=== PATIENT | male | born 1990 | race Hispanic/Latino ===

== ENCOUNTER 2019-11-05 09:17 | Emergency (ER) | payer SELFPAY ==
[2019-11-05 09:32] LABS: Absolute Lymphocytes (CBC) 1.9 K/uL (0.7-4.9); Basophils % 0.5 % (0-1.3); Lymphocytes % 24.5 % (15.3-44.8); MPV 7.4 fL (7.6-11.3); RBC Red Blood Cell Count 4.56 M/uL (4.33-5.43)
[2019-11-05] MEDS ORDERED: NA CHLORIDE 0.9% 1,000 ML ONE (09:36)
[2019-11-05 09:39] LABS: Protime INR 1.09
--- NOTE | 2019-11-05 09:50 | RAD REPORT ---
EXAM DESCRIPTION: CT - Head C Spine Mpr Wo Con - 11/05/2019 9:36 am CLINICAL HISTORY: Syncope. Head and neck injury status post fall. Head and neck pain COMPARISON: None. TECHNIQUE: Computed axial tomography of the head and cervical spine was obtained. Sagittal and coronal reconstruction was performed. All CT scans are performed using dose optimization technique as appropriate and may include automated exposure control or mA/KV adjustment according to patient size. FINDINGS: An intracranial bleed is not seen. The ventricles are normal in caliber. An extra-axial fl uid collection is not noted.Fluid within the visualized sinuses and mastoids is not seen A cervical fracture is not visualized. No dislocation is noted. IMPRESSION: No acute intracranial abnormality is seen. A cervical fracture is not visualized. If the patient continues to have symptoms to suggest intracra nial /spinal cord pathology then MRI would be recommended
[2019-11-05 09:56] LABS: ALT/SGPT 77 U/L (12-78); AST/SGOT 51 U/L (15-37); Alkaline Phosphatase 126 U/L (45-117); BUN Blood Urea Nitrogen 15 mg/dL (7-18); Bicarbonate 25 mmol/L (21-32); Bilirubin Direct 0.1 mg/dL (0-0.2); Bilirubin Total 0.6 mg/dL (0.2-1.0); Creatine Phosphokinase 158 U/L (39-308); Glucose Level 98 mg/dL (74-106); Magnesium 1.9 mg/dL (1.8-2.4); NT PRO-BNP 38 pg/mL (<125); Potassium 3.6 mmol/L (3.5-5.1); Protein, Total 7.6 g/dL (6.4-8.2); Sodium Level 138 mmol/L (136-145); Troponin (Emerg Dept Use Only) < 0.02 ng/mL (0.0-0.045)
--- NOTE | 2019-11-05 10:17 | RAD REPORT ---
EXAM DESCRIPTION: Eligio Single View11/05/2019 9:56 am CLINICAL HISTORY: Chest pain COMPARISON: none FINDINGS: The lungs appear clear of acute infiltrate. The heart is normal size IMPRESSION: No acute abnormalities displayed
--- NOTE | 2019-11-05 11:23 | EDPHYS ---
Physician Documentation [facility] Name: Torres Diop Age: 29 yrs Sex: Male : 1990 Arrival Date: 11/05/2019 Time: 09:19 Bed 5 Private MD: ED Physician Cesar Bailey HPI: 11/04 09:54 This 29 yrs old Male presents to ER via EMS with complaints of Syncope. snw 09:54 The patient has experienced syncope. Onset: The symptoms/episode began/occurred snw suddenly. Duration: This was a single episode, that lasted an unknown period of time. Context: the episode(s) was witnessed, by co-worker(s), occurred outdoors, occurred while the patient was working, Just prior to the episode the patient experienced no apparent symptoms. Associated injury: The patient did not suffer any apparent associated injury. Associated signs and symptoms: The patient has no apparent associated signs or symptoms. Current symptoms: Currently, the patient is not experiencing any symptoms, generalized weakness. The patient has not experienced similar symptoms in the past. It is unknown whether or not the patient has recently seen a physician. Historical: - Allergies: 09:24 No Known Allergies; sv - PMHx: 09:24 None; sv - PSHx: 09:24 None; sv - Immunization history:: Adult Immunizations. - Social history:: Smoking status: . ROS: 09:54 Constitutional: Negative for fever, chills, and weight loss, Eyes: Negative for injury, snw pain, redness, and discharge, ENT: Negative for injury, pain, and discharge, Neck: Negative for injury, pain, and swelling, Cardiovascular: Negative for chest pain, palpitations, and edema, Respiratory: Negative for shortness of breath, cough, wheezing, and pleuritic chest pain, Abdomen/GI: Negative for abdominal pain, nausea, vomiting, diarrhea, and constipation, Back: Negative for injury and pain, : Negative for injury, bleeding, discharge, and swelling, MS/Extremity: Negative for injury and deformity, Skin: Negative for injury, rash, and discoloration. 09:54 Neuro: Positive for syncope, weakness. Exam: 09:53 Constitutional: This is a well developed, well nourished patient who is awake, alert, snw and in no acute distress. Head/Face: Normocephalic, atraumatic. Eyes: Pupils equal round and reactive to light, extra-ocular motions intact. Lids and lashes normal. Conjunctiva and sclera are non-icteric and not injected. Cornea within normal limits. Periorbital areas with no swelling, redness, or edema. ENT: Nares patent. No nasal discharge, no septal abnormalities noted. Tympanic membranes are normal and external auditory canals are clear. Oropharynx with no redness, swelling, or masses, exudates, or evidence of obstruction, uvula midline. Mucous membranes moist. Neck: Trachea midline, no thyromegaly or masses palpated, and no cervical lymphadenopathy. Supple, full range of motion without nuchal rigidity, or vertebral point tenderness. No Meningismus. Chest/axilla: Normal chest wall appearance and motion. Nontender with no deformity. No lesions are appreciated. Cardiovascular: Regular rate and rhythm with a normal S1 and S2. No gallops, murmurs, or rubs. Normal PMI, no JVD. No pulse deficits. Respiratory: Lungs have equal breath sounds bilaterally, clear to auscultation and percussion. No rales, rhonchi or wheezes noted. No increased work of breathing, no retractions or nasal flaring. Abdomen/GI: Soft, non-tender, with normal bowel sounds. No distension or tympany. No guarding or rebound. No evidence of tenderness throughout. Back: No spinal tenderness. No costovertebral tenderness. Full range of motion. Skin: Warm, dry with normal turgor. Normal color with no rashes, no lesions, and no evidence of cellulitis. MS/ Extremity: Pulses equal, no cyanosis. Neurovascular intact. Full, normal range of motion. Psych: Awake, alert, with orientation to person, place and time. Behavior, mood, and affect are within normal limits. 09:53 Neuro: Orientation: is normal, Mentation: is normal, Memory: is normal, Cranial nerves: grossly normal, Sensation: is normal, seizure activity, is not displayed by the patient. Vital Signs: 09:20 BP 126 / 77; Pulse 76; Resp 16; Temp 97.8(TE); Pulse Ox 100% on R/A; ss 10:00 BP 112 / 83; Pulse 71; Resp 19; Pulse Ox 98% ; sv 10:21 BP 106 / 70 LA Supine; Pulse 67; Resp 19; Pulse Ox 98% on R/A; dh3 10:23 BP 107 / 81 LA Sitting; Pulse 75; Resp 19; Pulse Ox 98% on R/A; dh3 10:25 BP 110 / 81 LA Standing; Pulse 72; Resp 15; Pulse Ox 100% on R/A; dh3 12:00 BP 107 / 78; Pulse 58; Resp 18; Pulse Ox 100% on R/A; em MDM: 09:33 Patient medically screened. snw 11:21 ECG was reviewed by the Attending Physician. Data reviewed: vital signs, nurses notes. snw Data interpreted: Pulse oximetry: on room air is 100 %. Interpretation: normal. Counseling: I had a detailed discussion with the patient and/or guardian regarding: the historical points, exam findings, and any diagnostic results supporting the discharge/admit diagnosis, the presence of at least one elevated blood pressure reading (>120/80) during this emergency department visit, lab results, radiology results, the need for outpatient follow up, to return to the emergency department if symptoms worsen or persist or if there are any questions or concerns that arise at home. Special discussion: I have referred the patient to see his PCP for further evaluation of high blood pressure. Based on the history and exam findings, there is no indication for further emergent testing or inpatient evaluation. I discussed with the patient/guardian the need to see the dba manager for further evaluation of the symptoms. I discussed with the patient/guardian the need to see the primary care provider for further evaluation of the symptoms. 11/04 09:22 Order name: Basic Metabolic Panel; Complete Time: 10:02 snw 11/04 09:22 Order name: CBC with Diff; Complete Time: 09:48 snw 11/04 09:22 Order name: LFT's; Complete Time: 10:02 snw 11/04 09:22 Order name: Magnesium; Complete Time: 10:02 snw 11/04 09:22 Order name: NT PRO-BNP; Complete Time: 10:02 snw 11/04 09:22 Order name: PT-INR; Complete Time: 09:48 snw 11/04 09:22 Order name: Troponin (emerg Dept Use Only); Complete Time: 10:02 snw 11/04 09:22 Order name: XRAY Chest (1 view); Complete Time: 10:22 snw 11/04 09:22 Order name: EKG; Complete Time: 09:23 snw 11/04 09:22 Order name: Cardiac monitoring; Complete Time: 09:25 snw 11/04 09:22 Order name: CPK; Complete Time: 10:02 snw 11/04 09:22 Order name: CT Head C Spine; Complete Time: 09:52 snw 11/04 09:30 Order name: Glucose, Ancillary Testing; Complete Time: 09:33 EDMS 11/04 09:22 Order name: EKG - Nurse/Tech; Complete Time: 09:29 snw 11/04 09:22 Order name: IV Saline Lock; Complete Time: 09:25 snw 11/04 09:22 Order name: Labs collected and sent; Complete Time: 09:25 snw 11/04 09:22 Order name: O2 Per Protocol; Complete Time: 09:26 snw 11/04 09:22 Order name: O2 Sat Monitoring; Complete Time: 09:26 snw 11/04 10:03 Order name: Orthostatics; Complete Time: 10:29 snw Administered Medications: 09:29 Drug: NS 0.9% 1000 ml Route: IV; Rate: 1 bolus; Site: left antecubital; sv 12:23 Follow up: IV Status: Completed infusion; IV Intake: 1000ml em Disposition: 17:55 Co-signature as Attending Physician, Cesar Bailey MD I agree with the assessment and kdr plan of care. Disposition: 11/05/19 11:19 Discharged to Home. Impression: Syncope and collapse. - Condition is Stable. - Discharge Instructions: Syncope, Rehydration, Adult, Vasovagal Syncope, Pediatric. - Work release form, Medication Reconciliation Form, Thank You Letter, Antibiotic Education, Prescription Opioid Use form. - Follow up: Emergency Department; When: 2 - 3 days; Reason: Recheck today's complaints, Continuance of care, Re-evaluation by your physician. Follow up: Private Physician; When: 2 - 3 days; Reason: Recheck today's complaints, Continuance of care, Re-evaluation by your physician. Signatures: Dispatcher [facility] Monica Horton RN RN sv Rittger, Kevin, MD MD kdr Waters, Shelly, BROACH TROUBLE SHOOTER-C BROACH TROUBLE SHOOTER-Andre France, RN RN em Corrections: (The following items were deleted from the chart) 12:23 11:19 11/05/2019 11:19 Discharged to Home. Impression: Syncope and collapse. Condition em is Stable. Forms are Medication Reconciliation Form, Thank You Letter, Antibiotic Education, Prescription Opioid Use. Follow up: Emergency Department; When: 2 - 3 days; Reason: Recheck today's complaints, Continuance of care, Re-evaluation by your physician. Follow up: Private Physician; When: 2 - 3 days; Reason: Recheck today's complaints, Continuance of care, Re-evaluation by your physician. snw
--- NOTE | 2019-11-05 11:23 | ER ---
Nurse's Notes [facility] Name: Torres Diop Age: 29 yrs Sex: Male : 1990 Arrival Date: 11/05/2019 Time: 09:19 Bed 5 Private MD: Diagnosis: Syncope and collapse Presentation: 11/04 09:12 Chief complaint: EMS states: was at work and had a witnessed syncopal episode, when he sv woke up he started c/o chest pain and a headache. On EMS arrival pt was A\T\O x4. BP 160/90 HR-85 SR RR-18 99% O2 \T\ 2L per NC, Temp-99, BS-104. Coronavirus screen: Proceed with normal triage. Patient denies a cough. Patient denies shortness of breath or difficulty breathing. Patient denies measured and/or subjective temperature greater than 100.4F prior to today's visit. Patient denies travel on a cruise ship or to a country the [facility] currently lists as an affected area. Patient denies contact with known and/or suspected case of COVID-19. Ebola Screen: No symptoms or risks identified at this time. Initial Sepsis Screen: Does the patient meet any 2 criteria? No. Patient's initial sepsis screen is negative. Does the patient have a suspected source of infection? No. Patient's initial sepsis screen is negative. Risk Assessment: Do you want to hurt yourself or someone else? Patient reports no desire to harm self or others. Onset of symptoms was November 05, 2019. 09:12 Method Of Arrival: EMS: [facility] sv 09:12 Acuity: EVETTE 3 sv Triage Assessment: 09:24 General: Appears in no apparent distress. comfortable, well developed, Behavior is sv calm, cooperative, appropriate for age. Neuro: Level of Consciousness is awake, alert, obeys commands, Oriented to person, place, time, situation, Moves all extremities. Full function Speech is normal, Reports a syncopal episode. Respiratory: Respiratory effort is even, unlabored, Respiratory pattern is regular, symmetrical. Derm: Skin is pink, warm \T\ dry. Historical: - Allergies: 09:24 No Known Allergies; sv - PMHx: 09:24 None; sv - PSHx: :24 None; sv - Immunization history:: Adult Immunizations. - Social history:: Smoking status: . Screenin:30 Abuse screen: Denies threats or abuse. Denies injuries from another. Nutritional sv screening: No deficits noted. Tuberculosis screening: No symptoms or risk factors identified. Fall Risk None identified. Assessment: 09:30 General: Appears in no apparent distress. comfortable, Behavior is calm, cooperative, em appropriate for age, Denies fever. Pain: Denies pain. Neuro: Level of Consciousness is awake, alert, obeys commands, Oriented to person, place, time, situation, Appropriate for age Reports a syncopal episode Denies headache. Cardiovascular: Reports chest pain, palpitations, Capillary refill < 3 seconds Patient's skin is warm and dry. Rhythm is sinus rhythm. Respiratory: Airway is patent Respiratory effort is even, unlabored, Respiratory pattern is regular, symmetrical. GI: Patient currently denies nausea, vomiting. Derm: Skin is intact, is healthy with good turgor, Skin is pink, warm \T\ dry. Musculoskeletal: Capillary refill < 3 seconds, Range of motion: intact in all extremities. 11:06 Reassessment: reports being dizzy, provider notified. em 11:27 Reassessment: will be discharged after completion of 1 L of NS. em 12:22 Reassessment: Patient appears in no apparent distress at this time. Patient and/or em family updated on plan of care and expected duration. Pain level reassessed. Patient is alert, oriented x 3, equal unlabored respirations, skin warm/dry/pink. Patient states feeling better. Patient states symptoms have improved. Vital Signs: 09:20 BP 126 / 77; Pulse 76; Resp 16; Temp 97.8(TE); Pulse Ox 100% on R/A; ss 10:00 BP 112 / 83; Pulse 71; Resp 19; Pulse Ox 98% ; sv 10:21 BP 106 / 70 LA Supine; Pulse 67; Resp 19; Pulse Ox 98% on R/A; dh3 10:23 BP 107 / 81 LA Sitting; Pulse 75; Resp 19; Pulse Ox 98% on R/A; dh3 10:25 BP 110 / 81 LA Standing; Pulse 72; Resp 15; Pulse Ox 100% on R/A; dh3 12:00 BP 107 / 78; Pulse 58; Resp 18; Pulse Ox 100% on R/A; em ED Course: 09:19 Patient arrived in ED. hb 09:20 Opal Dumont FNP-C is [facility]. snw 09:20 Cesar Bailey MD is Attending Physician. snw 09:20 Nurse Practitioner and/or Physician Eyelet Cutter to see patient. sv 09:20 Initial lab(s) drawn, by me, sent to lab. sv 09:23 Triage completed. sv 09:24 Arm band placed on. sv 09:25 EKG done, by ED staff, reviewed by Opal MEDEIROS. [facility] 09:30 Patient has correct armband on for positive identification. Placed in gown. Bed in low sv position. Call light in reach. Side rails up X2. threat monitoring analyst on. Pulse ox on. NIBP on. Door closed. Head of bed elevated. 09:35 CT Head C Spine In Process Unspecified. EDMS 09:56 XRAY Chest (1 view) In Process Unspecified. EDMS 10:00 Awaiting radiology results. sv 10:27 Andre Rojas, RN is Primary Nurse. em 12:21 No provider procedures requiring assistance completed. IV discontinued, intact, em bleeding controlled, No redness/swelling at site. Pressure dressing applied. Administered Medications: 09:29 Drug: NS 0.9% 1000 ml Route: IV; Rate: 1 bolus; Site: left antecubital; sv 12:23 Follow up: IV Status: Completed infusion; IV Intake: 1000ml em Intake: 12:23 IV: 1000ml; Total: 1000ml. em Outcome: 11:19 Discharge ordered by MD. snw 12:21 Discharged to home ambulatory. em 12:21 Condition: good 12:21 Discharge instructions given to patient, Instructed on discharge instructions, follow up and referral plans. Demonstrated understanding of instructions, follow-up care. 12:23 Patient left the ED. em Signatures: Dispatcher [employer] Monica Horton RN RN sv Waters, Shelly, FNP-C FNP-Andre France RN RN em Frannie Luna RN RN Beena Wells RN RN Evon [facility]
[2019-11-05 12:29] VITALS: TEMP 97.8
[2019-11-05 12:34] VITALS: O2SAT 100
[2019-11-05 12:36] VITALS: BP 107/78
== END 2019-11-05 12:23 | disposition home or self-care (01) ==
LOC: ER 09:17
DX: R55 Syncope and collapse (principal)
CPT/HCPCS: 36415; 70450; 71045; 72125; 80048; 80076; 82550; 82947; 83735; 83880; 84484; 85025; 85610; 93005; 96360; 96361; 99285; J7030